=== PATIENT | female | born 1990 ===

== ENCOUNTER 2019-07-22 07:02 | Inpatient (IN) ==
[2019-07-22] MEDS ORDERED: FAMOTIDINE 20 MG/2 ML VIAL IV ONE (07:15)
[2019-07-22] MEDS ORDERED: ceFAZolin 2,000 MG in PREMIX 1 EACH IV ONE (07:15)
[2019-07-22] MEDS ORDERED: CITRIC ACID/SODIUM CITRATE 30 ML UDCUP PO ONE (07:15)
[2019-07-22] MEDS ORDERED: OXYTOCIN/LR 30 UNIT/1,000 ML BAG IV ONE (07:22)
[2019-07-22] MEDS ORDERED: OXYTOCIN 10 UNIT/ML VIAL IM ONE (07:22)
[2019-07-22 07:46] LABS: Basophils % 0.4 % (0.0-0.8); Eosinophils # 0.1 10*3/uL (0.0-0.87); Eosinophils % 1.1 % (0.00-10.9); Hemoglobin 10.5 GM/DL (12.0-16.0); Immature Granulocytes % 0.6 %; Immature Granulocytes Absolute 0.04 #; Lymphocytes # 1.7 10*3/uL (1.4-4.0); Lymphocytes % 24.4 % (21.3-54.2); Mean Corpuscular HGB Conc 31.8 GM/DL (32-36); Mean Corpuscular Volume 90.4 FL (87-102); Mean Platelet Volume 9.1 FL (9.6-12.0); Monocytes % 7.1 % (1.7-12.7); Neutrophils % 66.4 % (38.7-73.9); Platelet Count 250 T/CUMM (130-400); Red Blood Count 3.65 MC/CUMM (3.8-5.5); Red Cell Distribution Width 13.6 % (9.3-17.3); White Blood Count 7.1 T/CUMM (4-12)
[2019-07-22] MEDS ORDERED: LACTATED RINGERS 500 ML IV ONE (07:54)
[2019-07-22] MEDS ORDERED: LACTATED RINGERS 1,000 ML IV ONE ×2 (08:14→11:13)
[2019-07-22 08:16] LABS: Alanine Aminotransferase 19 U/L (13-56); Albumin 2.5 G/DL (3.4-5.0); Alkaline Phosphatase 129 U/L (45-117); Aspartate Amino Transferase 34 U/L (0-37); Bilirubin,Total < 0.39 MG/DL (0.2-1.0); Blood Urea Nitrogen 16 MG/DL (7-18); Calcium 8.3 MG/DL (8.5-10.1); Estimated Glom Filtration Rate 136 ML/MIN; Glucose 82 MG/DL (74-106); Osmolality,Calculated 272.8 MOS/KG (273-304)
[2019-07-22] MEDS: LACTATED RINGERS 1,000 ML IV SCH (08:50)
[2019-07-22] MEDS ORDERED: miSOPROStoL 200 MCG TABLET ONE (09:24)
[2019-07-22] MEDS ORDERED: TRANEXAMIC ACID 1,000 MG/10 ML VIAL ONE (09:24)
[2019-07-22] MEDS ORDERED: CARBOPROST TROMETHAMINE 250 MCG/ML AMP IM ONE (09:25)
[2019-07-22] MEDS ORDERED: METHYLERGONOVINE 0.2 MG/1 ML AMP ONE (09:25)
[2019-07-22 10:19] LABS: Cord Arterial Blood HCO3 22.6 MMOL/L
[2019-07-22 10:21] LABS: Cord Venous Blood HCO3 22.9 MMOL/L; Cord Venous Blood PCO2 40.6 MMHG; Cord Venous Blood PO2 40.5
[2019-07-22] MEDS ORDERED: ACETAMINOPHEN 325 MG TABLET PO PRN (10:28)
[2019-07-22] MEDS ORDERED: RHO(D) IMMUNE GLOBULIN 300 MCG SYRINGE IM ONE (10:28)
[2019-07-22] MEDS ORDERED: ONDANSETRON 4 MG/2 ML VIAL IV PRN (10:28)
[2019-07-22] MEDS ORDERED: SIMETHICONE CHEW 80 MG TABLET PO PRN (10:28)
[2019-07-22] MEDS ORDERED: MAGNESIUM HYDROXIDE SUSP 30 ML UDCUP PO PRN (10:28)
[2019-07-22] MEDS ORDERED: OXYTOCIN/LR 20 UNIT/1,000 ML BAG IV ONE ×2 (10:28→14:00)
[2019-07-22] MEDS ORDERED: LACTATED RINGERS 1,000 ML IV SCH (10:30)
[2019-07-22] MEDS ORDERED: BUPIVACAINE 0.5% 50 ML VIAL ONE (11:12)
[2019-07-22] MEDS ORDERED: BUPIVACAINE SPINAL 0.75% 2 ML AMP SPINAL ONE (11:12)
[2019-07-22] MEDS ORDERED: MORPHINE 10 MG/10 ML VIAL ONE (11:13)
[2019-07-22] MEDS ORDERED: DEXAMETHASONE 4 MG/1 ML VIAL ONE (11:13)
[2019-07-22] MEDS ORDERED: ONDANSETRON 4 MG/2 ML VIAL ONE (11:13)
[2019-07-22] MEDS: ceFAZolin 1,000 MG in SYRINGE 1 EACH IV SCH (17:35)
[2019-07-22 18:45] LABS: Basophils % 0.3 % (0.0-0.8); Hematocrit 30.4 VOL% (35.7-47.0); Hemoglobin 9.9 GM/DL (12.0-16.0); Immature Granulocytes % 0.7 %; Immature Granulocytes Absolute 0.08 #; Lymphocytes % 9.1 % (21.3-54.2); Mean Corpuscular HGB Conc 32.6 GM/DL (32-36); Mean Corpuscular Volume 89.1 FL (87-102); Mean Platelet Volume 9.2 FL (9.6-12.0); Monocytes % 3.9 % (1.7-12.7); Platelet Count 224 T/CUMM (130-400); Red Blood Count 3.41 MC/CUMM (3.8-5.5); Red Cell Distribution Width 13.3 % (9.3-17.3); White Blood Count 10.8 T/CUMM (4-12)
[2019-07-22] MEDS ORDERED: FERROUS SULFATE 325 MG TABLET PO SCH (21:00)
[2019-07-22] MEDS: DOCUSATE SODIUM 100 MG CAPSULE PO SCH (21:12)
[2019-07-23] MEDS: ceFAZolin 1,000 MG in SYRINGE 1 EACH IV SCH (02:05)
[2019-07-23 06:39] LABS: Basophils % 0.2 % (0.0-0.8); Eosinophils % 0.2 % (0.00-10.9); Hematocrit 24.2 VOL% (35.7-47.0); Hemoglobin 8.1 GM/DL (12.0-16.0); Immature Granulocytes % 0.7 %; Immature Granulocytes Absolute 0.06 #; Lymphocytes # 1.7 10*3/uL (1.4-4.0); Lymphocytes % 19.7 % (21.3-54.2); Mean Corpuscular HGB Conc 33.5 GM/DL (32-36); Mean Platelet Volume 9.1 FL (9.6-12.0); Monocytes % 6.8 % (1.7-12.7); Neutrophils % 72.4 % (38.7-73.9); Platelet Count 184 T/CUMM (130-400); Red Blood Count 2.75 MC/CUMM (3.8-5.5); Red Cell Distribution Width 13.2 % (9.3-17.3); White Blood Count 8.6 T/CUMM (4-12)
[2019-07-23] MEDS: IBUPROFEN 800 MG TABLET PO PRN ×2 (06:46→20:03)
[2019-07-23] MEDS: METOCLOPRAMIDE 10 MG TABLET PO SCH ×2 (09:33→15:42)
[2019-07-23] MEDS: FERROUS SULFATE 325 MG TABLET PO SCH ×3 (09:34→21:28)
[2019-07-23] MEDS: DOCUSATE SODIUM 100 MG CAPSULE PO SCH ×2 (09:34→21:28)
[2019-07-23] MEDS: LACTATED RINGERS 1,000 ML IV SCH (13:35)
[2019-07-24] MEDS: METOCLOPRAMIDE 10 MG TABLET PO SCH (00:01)
[2019-07-24 08:13] VITALS: BP 103/58
[2019-07-24] MEDS: DOCUSATE SODIUM 100 MG CAPSULE PO SCH (09:11)
[2019-07-24] MEDS: MULTIVITAMIN (PRENATAL) TABLET PO SCH (09:11)
[2019-07-24] MEDS: FERROUS SULFATE 325 MG TABLET PO SCH (09:11)
[2019-07-24] MEDS: IBUPROFEN 800 MG TABLET PO PRN (09:12)
== END 2019-07-24 12:20 | disposition home or self-care (01) | DRG 788 ==
LOC: N.LDOUT 07:02 → N.LD 07:05 → N.OB 16:08
PROVIDERS: ADMIT Obstetrics & Gynecology; ATTEND Obstetrics & Gynecology
PROC: LDCSECT (ICD-10-PCS; 2019-07-22 07:00)